=== PATIENT | female | born 1960 | race Caucasian/White ===

== ENCOUNTER 2019-05-16 12:09 | Emergency (ER) | payer SELFPAY ==
[2019-05-16] MEDS ORDERED: Adacel (T-DAP) 0.5 ML SYRINGE ONE (12:46)
[2019-05-16] MEDS ORDERED: Ibuprofen 800 MG TAB ONE (12:48)
--- NOTE | 2019-05-16 22:38 | CT ---
CT FACIAL BONES: 05/16/[address] of the face was performed for evaluation following trauma. Axial slices were acquired follo wed by coronal and sagittal reconstructions. No major acute fractures were identified. The orbital rims, zygomatic arches, mandible, maxilla and nasal bones showed no acute changes. There may have been old trauma around the nose. There is extens kody mucosal thickening in both maxillary sinuses and some of the ethmoid air cells bilaterally. The r etro-orbital areas appears normal. The surrounding soft tissue showed no acute findings of great con cern. IMPRESSION: 1. No acute facial fracture seen. 2. Extensive mucosal thickening in the paranasal sinuses, especially maxillary and ethmoids. Initial findings discussed with Dr. Bryant at 1309 on 05/16/19. POS: HOME
--- NOTE | 2019-05-16 22:41 | RAD ---
LEFT SHOULDER THREE VIEWS: 05/16/19 No fracture, dislocation, or AC joint widening was seen. I would note; however, on one view there wer e some lines in the medial aspect of the acromion near the AC joint. On other views, it is less promi nent. If there were point tenderness at the AC joint, then the possibility of a minimal nondisplaced fracture would be raised. The clavicle and scapula appear intact. Some minimal bony spurring is seen along the inferior aspect of the glenoid fossa. IMPRESSION: Equivocal findings in the acromion at the AC joint. Correlate with clinical exam. Code T POS: HOME
== END 2019-05-16 13:22 | disposition home or self-care (01) ==
LOC: BURERS 12:09
DX: S00.83XA Contusion of other part of head, initial encounter (principal); S40.012A Contusion of left shoulder, initial encounter; J01.90 Acute sinusitis, unspecified; I10 Essential (primary) hypertension; F41.9 Anxiety disorder, unspecified; Z79.899 Other long term (current) drug therapy; Z87.442 Personal history of urinary calculi; W01.0XXA Fall on same level from slipping, tripping and stumbling without subsequent striking against object, initial encounter
CPT/HCPCS: 70486; 90471; 90715

== ENCOUNTER 2020-09-13 21:55 | Emergency (ER) | payer SELFPAY ==
[2020-09-13] MEDS ORDERED: Lidocaine 2% 20 ml MDV ONE (22:55)
[2020-09-13] MEDS ORDERED: Bacitracin 1 PK ONE (23:15)
== END 2020-09-13 23:15 | disposition home or self-care (01) ==
LOC: BURERS 21:55
DX: S01.112A Laceration without foreign body of left eyelid and periocular area, initial encounter (principal); K21.9 Gastro-esophageal reflux disease without esophagitis; I10 Essential (primary) hypertension; W20.8XXA Other cause of strike by thrown, projected or falling object, initial encounter
CPT/HCPCS: 12011; 70480

== ENCOUNTER 2020-12-12 17:19 | Emergency (ER) | payer SELFPAY ==
[2020-12-12] MEDS ORDERED: Ketorolac Tromethamine 30 MG/ML VIAL ONE (18:11)
[2020-12-12] MEDS ORDERED: Ondansetron PF 4 MG/2 ML Vial ONE (18:11)
[2020-12-12] MEDS ORDERED: Aspirin Chewable 81 MG TAB ONE (18:11)
[2020-12-12 18:28] LABS: #Lymphocytes 0.7 thou/uL (1.20-3.40); #Monocytes 0.4 thou/uL (0.11-0.59); #Neutrophils 1.5 thou/uL (1.40-6.50); %Basophils 1.4 % (0.0-1.0); %Eosinophils 1.3 % (0.0-10.0); %Lymphocytes 25.3 % (21.0-51.0); %Monocytes 13.4 % (0.0-10.0); %Neutrophils 58.6 % (42.0-75.0); Hemoglobin 12.1 g/dL (12.0-16.0); Mean Corpuscular HGB CONC 32.6 g/dL (32.0-36.0); Mean Corpuscular Hemoglobin 30.7 pg (27.0-31.0); Mean Corpuscular Volume 94.2 fL (78.0-98.0); Mean Platelet Volume 7.1 fL (7.4-10.4); Platelet Count 168 thou/uL (130-400); RBC Distribution Width 12.7 % (11.5-14.5); Red Blood Cell (RBC) Count 3.93 mill/uL (4.20-5.40); White Blood Cell (WBC) Count 2.6 thou/uL (4.8-10.8)
[2020-12-12 18:39] LABS: ALT (SGPT) 12 U/L (8-55); AST (SGOT) 14 U/L (5-34); Albumin 3.9 g/dL (3.5-5.0); Alkaline Phosphatase 63 U/L (40-110); Anion Gap 12 mmol/L (10-20); BUN (Urea Nitrogen) 7 mg/dL (9.8-20.1); Bilirubin, Total 0.2 mg/dL (0.2-1.2); Calc. Creatinine Clearance 0 mL/min (70-130); Carbon Dioxide 23 mmol/L (22-29); Chloride 107 mmol/L (98-107); Globulin 2.4 g/dL (2.4-3.5); Glucose 108 mg/dL (70-105); Lipase 14 U/L (8-78); Potassium 3.3 mmol/L (3.5-5.1); Protein, Total 6.3 g/dL (6.0-8.3); Sodium 139 mmol/L (136-145)
[2020-12-13 01:39] LABS: SARS-CoV-2 PCR by NAA DETECTED (NotDetected)
== END 2020-12-12 19:30 | disposition home or self-care (01) ==
LOC: BURERS 17:19
DX: U07.1 COVID-19 (principal); R07.89 Other chest pain; K21.9 Gastro-esophageal reflux disease without esophagitis; I10 Essential (primary) hypertension
CPT/HCPCS: 36415; 71045; 80053; 83690; 84484; 85025; 85379; 93005; 94760; 96374; 96375; J1885; J2405; U0003; U0005